=== PATIENT | male | born 1985 | race Caucasian/White ===

== ENCOUNTER 2025-06-03 09:43 | Emergency (ER) | payer MEDICAID ==
[~2025-06-03] VITALS: Ht 167.6 cm; Wt 86.0 kg
[2025-06-03 09:45] VITALS: O2SAT 97
[2025-06-03 10:37] LABS: BASOPHILS % 0.4 % (0.0-2.0); EOSINOPHILS % 0.7 % (0.0-5.0); HEMATOCRIT. 46.3 % (42.0-52.0); HEMOGLOBIN. 15.7 g/dL (14.0-18.0); LYMPHOCYTES % 13.5 % (20.0-50.0); MEAN PLATELET VOLUME 9.2 fl (7.4-10.4); MONOCYTES % 6.0 % (2.0-8.0); NEUTROPHILS % 79.4 % (40.0-76.0); PLATELET 128 x1000/uL (130-400); RED BLOOD CELL COUNT 5.16 mill/uL (4.7-6.1); RED CELL DISTRIBUTION WIDTH 13.4 % (11.6-14.6)
[2025-06-03] MEDS: SODIUM CHLORIDE 0.9% 1,000 ML IV ONE (10:45)
[2025-06-03 10:59] LABS: CREATININE 1.0 mg/dL (0.6-1.3)
[2025-06-03 11:00] LABS: UREA NITROGEN BLOOD 13 mg/dL (9-23)
[2025-06-03 11:01] LABS: ASPARTATE AMINOTRANSFERASE 30 IU/L (<34); BILIRUBIN DIRECT 0.2 mg/dL (<=3.0); BILIRUBIN TOTAL 0.6 mg/dL (0.1-1.0); PROTEIN TOTAL 6.9 g/dL (6.0-8.3)
[2025-06-03 11:07] LABS: CLARITY URINE CLEAR (CLEAR); COLOR URINE YELLOW (YELLOW); GLUCOSE URINE NEGATIVE (NEGATIVE); KETONES URINE NEGATIVE (NEGATIVE); LEUKOCYTE ESTERASE URINE NEGATIVE (NEGATIVE); NITRITE URINE NEGATIVE (NEGATIVE); OCCULT BLOOD URINE 3+ (NEGATIVE); PH URINE 5.5 (4.5-8.0); PROTEIN URINE 1+ (NEGATIVE); SPECIFIC GRAVITY URINE 1.013 (1.005-1.030); UROBILINOGEN URINE 0.2 E.U./dL (0.2-1.0)
[2025-06-03] MEDS ORDERED: IBUP-2030 MT (11:16)
[2025-06-03] MEDS ORDERED: TAMS-54 MT (11:16)
[2025-06-03] MEDS: HYDROCODONE/ACETAMINOPHEN 5/325MG TABLET PO ONE (11:28)
[2025-06-03] MEDS: KETOROLAC 15MG/ML VIAL IV ONE (11:35)
[2025-06-03] MEDS: TAMSULOSIN HCL 0.4MG SR CAPSULE PO ONE (11:39)
[2025-06-03 11:56] LABS: SQUAMOUS EPITHELIAL CELL URINE FEW /lpf (RARE/1+)
[2025-06-03 11:57] LABS: RBC URINE 50-100 /hpf (0-2)
[2025-06-03 11:59] LABS: BACTERIA URINE 1+
[2025-06-03 12:00] LABS: WBC URINE 0-2 /hpf (0-2)
[2025-06-03 13:26] VITALS: BP 142/98; PULSE 82; RESP 18; TEMP 36.8; O2SAT 99
== END 2025-06-03 13:27 | disposition home or self-care (01) ==
LOC: ER 09:43
DX: N20.0 Calculus of kidney (principal); E78.00 Pure hypercholesterolemia, unspecified
CPT/HCPCS: 99285; 74176; 96374; 96361; 80076; 80048; 81003; 83690; 85025; 36415; J1885; J7030